=== PATIENT | female | born 1965 | race Caucasian/White ===

== ENCOUNTER 2017-03-29 11:02 | Day surgery (SDC) | payer OTHER ==
[~2017-03-29] VITALS: Ht 154.9 cm; Wt 117.9 kg
[~2017-03-29 11:02] MED LIST: CALCIUM + D SO1 EACH PO; CARDIZEM CD240 MG PO; CLIMARA0.05 MG TP; DIGITEK250 MC2 PO; ELIQUIS5 MG PO; METOPROLOL SUC100 MG PO; PROPAFENONE HC225 MG PO; SEPTRA DS TABL1 EACH PO; TOPROL XL100 MG PO; TYLENOL EXTRA500 MG PO; VENTOLIN HFA18 GM IH
[2017-03-29 11:45] VITALS: BP 166/83
[2017-03-29] MEDS ORDERED: COLACE100 MG PO (13:20)
[2017-03-29] MEDS ORDERED: PERCOCET 5/31 TABLET PO (13:20)
[2017-03-29 14:25] VITALS: BP 141/60
[2017-03-29 15:44] VITALS: BP 127/71
== END 2017-03-29 15:55 | disposition home or self-care (01) ==
LOC: SDC 11:02
DX: K64.8 Other hemorrhoids (principal); K64.5 Perianal venous thrombosis; K64.4 Residual hemorrhoidal skin tags; I48.91 Unspecified atrial fibrillation; Z79.01 Long term (current) use of anticoagulants; K57.90 Diverticulosis of intestine, part unspecified, without perforation or abscess without bleeding; I10 Essential (primary) hypertension; E66.9 Obesity, unspecified; Z90.49 Acquired absence of other specified parts of digestive tract; Z90.710 Acquired absence of both cervix and uterus; Z96.659 Presence of unspecified artificial knee joint; Z82.49 Family history of ischemic heart disease and other diseases of the circulatory system; Z83.3 Family history of diabetes mellitus
CPT/HCPCS: 88304; J0330; J1100; J1170; J2250; J2405; J3010; Q0175; S0074